=== PATIENT | female | born 1995 | race Two or more races ===

== ENCOUNTER 2019-01-03 09:57 | Outpatient (CLI) | payer OTHER ==
[~2019-01-03 09:57] MED LIST: SYMBICORT 16010.2 GM
== END 2019-01-03 10:00 | disposition home or self-care (01) ==
LOC: NUCLEAR 09:57
DX: R00.2 Palpitations (principal)

== ENCOUNTER 2020-01-09 13:23 | Emergency (ER) | payer OTHER ==
[~2020-01-09] VITALS: Ht 162.6 cm; Wt 79.4 kg
== END 2020-01-09 15:28 | disposition home or self-care (01) ==
LOC: ER 13:23
DX: L72.8 Other follicular cysts of the skin and subcutaneous tissue (principal)

== ENCOUNTER 2020-01-10 20:37 | Emergency (ER) | payer OTHER ==
[~2020-01-10] VITALS: Ht 165.1 cm; Wt 79.4 kg
== END 2020-01-10 23:03 | disposition home or self-care (01) ==
LOC: ER 20:37
DX: B34.9 Viral infection, unspecified (principal); R06.02 Shortness of breath; Z03.818 Encounter for observation for suspected exposure to other biological agents ruled out

== ENCOUNTER 2020-06-22 17:30 | Emergency (ER) | payer OTHER ==
[~2020-06-22] VITALS: Ht 162.6 cm; Wt 81.6 kg
== END 2020-06-22 21:41 | disposition home or self-care (01) ==
LOC: ER 17:30
DX: B34.9 Viral infection, unspecified (principal); K52.89 Other specified noninfective gastroenteritis and colitis; E86.0 Dehydration; Z03.818 Encounter for observation for suspected exposure to other biological agents ruled out

== ENCOUNTER 2020-07-15 09:42 | Outpatient (CLI) | payer OTHER | END 2020-07-15 09:58 | disposition HB | LOC: MRI 09:42 | DX: M25.562 Pain in left knee (principal) | CPT/HCPCS: 73721 ==

== ENCOUNTER 2021-01-25 21:20 | Emergency (ER) | payer OTHER ==
[~2021-01-25] VITALS: Ht 165.1 cm; Wt 80.7 kg
== END 2021-01-25 23:00 | disposition home or self-care (01) ==
LOC: ER 21:20
DX: R06.02 Shortness of breath (principal); B96.0 Mycoplasma pneumoniae [M. pneumoniae] as the cause of diseases classified elsewhere

== ENCOUNTER 2021-02-19 11:15 | Emergency (ER) | payer OTHER ==
[~2021-02-19] VITALS: Ht 162.6 cm; Wt 76.2 kg
[2021-02-19] MEDS ORDERED: FAMOTIDINE20 MG PO (11:40)
[2021-02-19] MEDS ORDERED: ALBUTEROL2.5 MG/3 M IH (11:40)
[2021-02-19] MEDS ORDERED: MONTELUKAST SOD10 MG PO (11:41)
[2021-02-19] MEDS ORDERED: KETO10TA2 PO (20:30)
[2021-02-19] MEDS ORDERED: LEVALBUTER1.25 MG/3 IH (20:41)
[2021-02-19] MEDS ORDERED: BUDESONIDE0.5 MG/2 M IH (20:41)
[2021-02-19] MEDS ORDERED: ORPHENADRINE C100 MG PO (20:41)
== END 2021-02-19 21:20 | disposition home or self-care (01) ==
LOC: ER 11:15
DX: J45.901 Unspecified asthma with (acute) exacerbation (principal); R06.02 Shortness of breath; U07.1 COVID-19; R53.81 Other malaise; R51.9 Headache, unspecified

== ENCOUNTER 2022-05-18 18:49 | Emergency (ER) | payer OTHER ==
[~2022-05-18] VITALS: Ht 162.6 cm; Wt 77.1 kg
[~2022-05-18 18:49] MED LIST changes: +ALBUTEROL2.5 MG/3 M IH; +BUDESONIDE0.5 MG/2 M IH; +FAMOTIDINE20 MG PO; +KETO10TA2 PO; +LEVALBUTER1.25 MG/3 IH; +MONTELUKAST SOD10 MG PO; +ORPHENADRINE C100 MG PO
== END 2022-05-19 00:01 | disposition home or self-care (01) ==
LOC: ER 18:49
DX: B34.8 Other viral infections of unspecified site (principal)